=== PATIENT | female | born 1965 | race African-American/Black ===

== ENCOUNTER 2018-11-06 10:45 | Emergency (ER) | payer MEDICAID, MEDICARE ==
[~2018-11-06] VITALS: Ht 157.5 cm; Wt 123.0 kg
[~2018-11-06 10:45] MED LIST: ALLO100T PO; CARV25TA47 PO; COLC0.6T66 PO; FURO80TA3 PO; HYDR-4134 PO; ISOSORBIDE DN PO; METO25TA6 PO; NAP5EC PO; SPIR50TA5 PO
[2018-11-06 11:40] LABS: BASOPHILS % 0.7 % (0.0-2.0); EOSINOPHILS % 0.9 % (0.0-5.0); HEMATOCRIT. 39.8 % (36.0-48.0); HEMOGLOBIN. 12.8 g/dL (12.0-16.0); LYMPHOCYTES % 19.7 % (20.0-50.0); MEAN CORPUSCULAR VOLUME 84.2 fL (81.0-99.0); MEAN PLATELET VOLUME 9.9 fl (7.4-10.4); MONOCYTES % 8.4 % (2.0-8.0); NEUTROPHILS % 70.3 % (40.0-76.0); PLATELET 159 x1000/uL (130-400); RED BLOOD CELL COUNT 4.73 mill/uL (4.2-5.4); RED CELL DISTRIBUTION WIDTH 15.4 % (11.6-14.6)
[2018-11-06 11:46] LABS: CHLORIDE 106 mEq/L (98-107)
[2018-11-06] MEDS ORDERED: ALBUTEROL (0.083%) 2.5MG/3ML NEB HHN STA (13:32)
[2018-11-06] MEDS ORDERED: METHYLPREDNISOLONE SOD SUCC 125 MG/2 ML VIAL IV STA (13:32)
[2018-11-06] MEDS ORDERED: IPRATROPIUM BROMIDE (0.02%) 0.5MG/2.5ML NEB HHN STA (13:32)
[2018-11-06] MEDS ORDERED: FUROSEMIDE 40MG/4ML VIAL IVP ONE (13:45)
[2018-11-06 16:05] VITALS: BP 139/97
== END 2018-11-06 16:35 | disposition short-term general hospital (02) ==
LOC: ER 10:45
DX: I11.0 Hypertensive heart disease with heart failure (principal); I50.9 Heart failure, unspecified; J44.9 Chronic obstructive pulmonary disease, unspecified; Z79.899 Other long term (current) drug therapy; Z90.710 Acquired absence of both cervix and uterus
CPT/HCPCS: 36415; 71045; 80053; 83880; 84484; 85025; 93005; 94644; 96374; 96375; 99285; J1940; J2930; J7611